=== PATIENT | female | born 2005 | race Two or more races ===

== ENCOUNTER 2024-07-21 17:51 | Emergency (ER) | payer MEDICAID, SELFPAY ==
[2024-07-21 17:52] VITALS: BMI 28.8
[2024-07-21 18:51] VITALS: BP 120/77; PULSE 95; RESP 18; TEMP 37.8; O2SAT 97
--- NOTE | 2024-07-21 19:00 | XR_ITS ---
Examination: PA lateral chest 2 views TECHNIQUE: Upright PA lateral chest 2 views Date and time: July 21, 2024, 2014 hours INDICATIONS: Chest pain and coughing 6 months FINDINGS: Normal heart size. Lungs are clear. Intact osseous structures. IMPRESSION: No active disease.
[2024-07-21 19:57] LABS: Lactate (Lactic Acid) 0.9 mMol/L (0.4-2.0)
[2024-07-21 20:08] LABS: Basophils % (Auto) 0 % (0-2.5); Eosinophils # (Auto) 0.1 Thou/mm3 (0.0-0.5); Eosinophils % (Auto) 1 % (0-10); Hematocrit 38.9 % (36.0-46.0); Hemoglobin 14.2 g/dL (12.0-16.0); Immature Granulocytes % (Auto) 0 % (0-0); Immature Granulocytes Auto 0.02 Thou/mm3 (0.00-0.00); Lymphocytes # (Auto) 1.2 Thou/mm3 (1.0-5.0); Lymphocytes % (Auto) 18 % (10-50); Mean Corpuscular HGB Conc 36.5 g/dl (31.0-37.0); Mean Corpuscular Hemoglobin 30.8 pg (25.0-35.0); Mean Corpuscular Volume 84 fL (80-100); Monocytes # (Auto) 0.5 Thou/mm3 (0.0-0.8); Monocytes % (Auto) 8 % (0-12); Neutrophils # (Auto) 4.9 Thou/mm3 (1.8-7.7); Neutrophils % (Auto) 74 % (37-80); Nucleated Red Blood Cell % 0 /100 WBC (0); Platelet Count 244 Thou/mm3 (140-440); RDW Standard Deviation 37.6 fL (36.4-46.3); Red Blood Count 4.61 Miln/mm3 (4.00-5.20); White Blood Count 6.7 Thou/mm3 (4.5-11.0)
[2024-07-21 20:40] LABS: Sodium 143 mMol/L (136-145)
[2024-07-21 20:41] LABS: Alanine Aminotransferase 23 U/L (10-49); Albumin, Serum 4.7 gm/dL (3.5-5.0); Albumin/Globulin Ratio 1.9 (1.2-2.2); Alkaline Phosphatase 99 U/L (46-116); Anion Gap 10 (7-16); Aspartate Amino Transferase 24 U/L (0-34); BUN/Creatinine Ratio 10 Ratio (12-20); Bilirubin,Total 0.9 mg/dL (0.3-1.2); Blood Urea Nitrogen 9 mg/dL (9-23); Calcium 9.1 mg/dL (8.3-10.6); Calcium (Corrected) 9.1 mg/dL (8.5-10.1); Carbon Dioxide 27.6 mMol/L (20.0-31.0); Chloride 105 mMol/L (98-107); Creatinine (Component) 0.9 mg/dL (0.6-1.3); Estimated Creatinine Clearance 100.5 mL/min (>60); Globulin 2.5 gm/dL (2.3-3.5); Glucose 103 mg/dL (74-106); Osmolality,Calculated 283 (275-295); Potassium 4.3 mMol/L (3.4-5.1); Procalcitonin 0.14 ng/ml (0.0-0.49); Total Protein 7.2 gm/dL (5.7-8.2); eGFR > 60 See Note
--- NOTE | 2024-07-22 03:53 | PD.EDURI ---
Upper Respiratory Inf. RME/HPI General Chief Complaint: Flu Like Symptoms Stated Complaint: COUGH, HEADACHE, FEVER X6MO Time Seen by Provider: 07/21/24 19:00 Arrival date/time: 07/21/24 17:51 18F with no significant PMH presents to ED with 6 months of intermittent cough, LAIRD, and fevers/chills. Patient works at a [employer]. Limitations: no limitations Related Data Previous Rx's ?Medication ?Instructions ?Recorded albuterol sulfate 90 mcg/actuation 2 puff inhalation QID PRN 06/25/21 aerosol inhaler shortness of breath or wheezing #8.5 grams cetirizine 10 mg capsule (Zyrtec) 10 mg PO QDAY PRN allergy symptoms 06/25/21 #30 caps sodium chloride 0.65 % nasal spray 2 spray intranasal QID #88 mL 06/25/21 aerosol (Saline Nasal) Allergies Allergy/AdvReac Type Severity Reaction Status Date / Time No Known Allergies Allergy Verified 07/21/24 17:53 Review of Systems Review of Systems Systems Reviewed: All systems reviewed, normal except as documented Constitutional Constitutional: Reports system reviewed and no additional complaints, except as documented, Reports as per HPI, Reports anorexia, Reports chills, Reports fever(s) and Reports headache(s) ENT Ears, Nose, Mouth, and Throat: Denies disequilibrium and Reports headache(s) Cardiovascular Cardiovascular: Reports system reviewed and no additional complaints, except as documented, Denies chest pain and Denies dyspnea Respiratory Respiratory: Reports system reviewed and no additional complaints, except as documented, Reports as per HPI, Reports cough and Denies dyspnea Gastrointestinal Gastrointestinal: Reports system reviewed and no additional complaints, except as documented, Denies abdominal pain, Denies nausea and Denies vomiting Neurologic Neurologic: Reports system reviewed and no additional complaints, except as documented, Denies confusion, Denies disequilibrium and Reports headache(s) Psychiatric Psychiatric: Denies confusion Past Medical History Social History SMOKING STATUS: Never smoker ED Exam General Limitations: Present no limitations General appearance: Present alert and in no apparent distress Head Head exam: Present atraumatic Eye Eye exam: Present normal appearance, PERRL and EOMI ENT ENT exam: Present normal exam, normal oropharynx and mucous membranes moist Neck Neck exam: Present normal inspection, full ROM and trachea midline Chest Chest inspection: Present normal inspection and symmetric chest wall rise Respiratory Respiratory exam: Present normal lung sounds bilaterally Cardiovascular Cardiovascular exam: Present regular rate, normal rhythm and normal heart sounds Abdominal Exam Abdominal exam: Present soft and normal bowel sounds Extremities Exam Extremities exam: Present normal inspection and full ROM Back Exam Back exam: Present normal inspection and full ROM Neurological Exam Neurological exam: Present alert, oriented X3 and CN II-XII intact Psychiatric Psychiatric exam: Present normal affect and normal mood Skin Skin exam: Present warm, dry, intact and normal color Course Quality Measures none Orders Category Date Time Status XR chest 2V Stat Exams 07/21/24 19:00 Completed CBC Stat Lab 07/21/24 19:52 Completed CMP [Comprehensive Metabolic Panel] Stat Lab 07/21/24 19:52 Completed Cocci Serology IgM with reflex to IgG [Cocci Serology, Lab 07/21/24 19:52 Received Unk History] Stat Lactate (Lactic Acid) Stat Lab 07/21/24 19:52 Completed Procalcitonin Stat Lab 07/21/24 19:52 Completed Vital Signs Vital signs: Vital Signs Temperature 100.1 F 07/21/24 18:51 Pulse Rate 95 07/21/24 18:51 Respiratory Rate 18 07/21/24 18:51 Blood Pressure 120/77 07/21/24 18:51 Pulse Oximetry (%) 97 07/21/24 18:51 Oxygen Delivery Method Room Air 07/21/24 18:51 O2 at 97% on RA and WNLs Upper Respiratory Infection MDM Narrative MDM Narrative:: 18F with no significant PMH presents to ED with 6 months of intermittent cough, LAIRD, and fevers/chills. Patient works at a preschool. Physical exam reveals clear ENT and lungs. Normal WOB. Patient is afebrile, calm, and alert. Normal CXR. No leukocytosis. Procal/lactate normal. CMP unremarkable. Cocci pending at DC. More likely patient is getting new viral URIs from her work environment and doesn't realize that, given she is getting better and then worse vs coughing every day. Patient data External records reviewed:: [facility] previous records Clinical information provided by:: patient Social determinants that could affect healthcare access:: none Patient has the following chronic illnesses:: none How is presenting disease/condition affected by chronic disease/condition?: no chronic disease Evaluation data The following diagnostics were reviewed and interpreted by me:: lab results and radiology exam(s) Lab and/or radiology exams considered but not ordered:: ordered Interpretation Summary: above Medications / Prescriptions Medications or Prescriptions considered but not ordered:: not ordered Medication administrations:: n/a Consultations Consultation(s) initiated? (list below): No Diagnosis Upper Respiratory Differential Diagnosis: upper respiratory infection, croup, otitis media, sinusitis, viral infection, bronchitis, influenza and pharyngitis Most likely diagnosis given after review of the tests above:: cough Admission Indicated Admission indicated?: not indicated Admission Request Was there a request for admission?: No Disposition Plan Disposition Plan: Discharge Discharge Attestation Discharge Attestation: The patient and all family members were given an opportunity to ask questions and understood the discharge instructions. Discharge instructions specifically effects, indications for sooner follow up or return to the emergency department, and the expected course of current diagnosis. Patient condition: Stable Discharge Plan Plan Patient Disposition: HOME (Self Care) Discharge Disposition comment: Stable Prescriptions/Referrals Prescriptions/Med Rec: No Action albuterol sulfate 90 mcg/actuation HFA aerosol inhaler 2 puff inhalation QID PRN (Reason: shortness of breath or wheezing) Qty: 8.5 0RF Saline Nasal 0.65 % aerosol,spray 2 spray intranasal QID Qty: 88 0RF Zyrtec 10 mg capsule 10 mg PO QDAY PRN (Reason: allergy symptoms) Qty: 30 0RF Referrals: Armin Kim MD [Primary Care Provider] - In 1 week Problem List Clinical Impression: Cough Patient/Caregiver Discharge Instructions Education Materials: ED Cough Chronic Uncertain Cause Adult Additional Instructions: Please follow-up with PCP within 24-48 hours and return immediately if symptoms worsen. Check patient portal for [place] Fever results. Follow-up with PCP for additional evaluation including asthma testing. Print Language: Welsh Stand Alone Forms: Patient Portal Info Letter PA/DUDLEY Supervising Physician AISLINN/DUDLEY Supervising Physician: Dr. Gonzalez
[2024-07-22 14:39] LABS: Cocci Serology, IgM Negative (Negative)
[2024-07-24 14:12] LABS: Cocci Serology, IgG Negative (Negative)
== END 2024-07-21 21:51 | disposition home or self-care (01) ==
PROVIDERS: Physician Assistant; Emergency Provider Emergency Medicine; PCP Family Medicine
DX: R05.9 Cough, unspecified (principal); R07.9 Chest pain, unspecified
CPT/HCPCS: 36415; 71046; 80053; 83605; 84145; 85025; 86331; 86635; 99283